=== PATIENT | female | born 1975 | race Two or more races ===

== ENCOUNTER 2023-05-15 08:17 | Emergency (ER) | payer MEDICAID, OTHER ==
[~2023-05-15] VITALS: Ht 157.5 cm; Wt 54.5 kg
[2023-05-15 08:43] VITALS: BP 93/51; PULSE 16; RESP 16; TEMP 98.6; O2SAT 98
== END 2023-05-15 09:11 | disposition home or self-care (01) ==
LOC: ER 08:17
DX: S21.212D Laceration without foreign body of left back wall of thorax without penetration into thoracic cavity, subsequent encounter (principal); X58.XXXD Exposure to other specified factors, subsequent encounter

== ENCOUNTER 2023-12-09 00:31 | Emergency (ER) | payer MEDICAID ==
[~2023-12-09] VITALS: Ht 165.1 cm; Wt 55.0 kg
[2023-12-09 01:47] LABS: Urine Bacteria FEW /hpf (None Seen); Urine Blood 3+ /uL (Negative); Urine Clarity Turbid (Clear); Urine Color Light-Red (Yellow); Urine Protein, UAD 1+ (Negative); Urine Specific Gravity 1.002 (1.001-1.035); Urine Urobilinogen Normal (Negative); Urine WBC 37 /hpf (0 - 5)
[2023-12-09] MEDS: cefTRIAXone SOD 1,000 MG VL IM ONE (04:04)
[2023-12-09] MEDS ORDERED: BACDST PO (04:25)
[2023-12-09 04:34] VITALS: BP 126/63; PULSE 77; RESP 18; TEMP 97; O2SAT 100
== END 2023-12-09 04:37 | disposition home or self-care (01) ==
LOC: ER 00:31
DX: N39.0 Urinary tract infection, site not specified (principal)
CPT/HCPCS: 81001; 87086; 87088; 87186; 96372; 99283; J0696